=== PATIENT | female | born 1995 | race Caucasian/White ===

== ENCOUNTER → 2019-05-23 10:33 | Outpatient (CLI) | payer SELFPAY ==
--- NOTE | 2019-05-23 | DI.US.S_ITS ---
ULTRASOUND OF LEFT BREAST: 05/23/2019 CLINICAL: Palpable left breast lump. No prior exams were available for comparison. Color flow and real-time ultrasound of the left breast were performed. James scale images of the real-time examination were reviewed. There is 0.9 cm x 0.7 cm x 0.8 cm mass in the left breast central to the nipple in the retroareolar region. This mass is mainly hypoechoic but of mixed echogenicity with posterior acoustic enhancement. This correlates as palpated. Color flow imaging demonstrates that there is no vascularity present. IMPRESSION: PROBABLY BENIGN The 0.9 cm x 0.7 cm x 0.8 cm mass in the left breast is probably benign. Differential diagnosis includes complicated/ proteinaceous/ sebaceous cyst, granuloma, fibroadenoma, less likely papilloma. Patient reports its presence for greater than 1 year, with prior outside evaluations. These studies will be called for and a direct comparison will be made. A follow-up left ultrasound in 6 months is recommended to demonstrate stability. Findings and recommendations were conveyed to the patient at time of exam. This exam was interpreted at Station ID: [id number]. Electronically Signed By: Holly howe/:05/23/2019 15:17:41 letter sent: Followup Recommended Ultrasound BI-RADS: 3 Probably benign
== END ==
PROVIDERS: Visit Provider Internal Medicine
DX: N63.20 Unspecified lump in the left breast, unspecified quadrant (principal)
CPT/HCPCS: 76642